=== PATIENT | female | born 1955 | race Caucasian/White ===

== ENCOUNTER 2019-06-02 05:23 | Day surgery (SDC) | payer OTHER ==
[2019-06-02] MEDS ORDERED: cefOXitin 2 GM in Sodium Chloride 0.9% 50 ML IV ONE (06:00)
[2019-06-02] MEDS ORDERED: Albuterol/Ipratropium 3.0-0.5 MG/3 ML Neb Soln NEB ONE (06:00)
[2019-06-02] MEDS ORDERED: Acetaminophen 500 MG Tab PO ONE (06:00)
[2019-06-02] MEDS: Dextrose 5%-Lactated Ringers 1,000 ML IV SCH ×2 (06:35→14:38)
[2019-06-02] MEDS ORDERED: Bupivacaine 0.5%/EPINEPHrine 1:200,000 50 ML MDV ONE (06:36)
[2019-06-02] MEDS ORDERED: fentaNYL 250 MCG/5 ML SDV ONE (07:17)
[2019-06-02] MEDS ORDERED: Neostigmine Methylsulfate 1 MG/ML 5 ML Syringe ONE (07:20)
[2019-06-02] MEDS ORDERED: Propofol 200 MG/20 ML SDV ONE (07:20)
[2019-06-02] MEDS ORDERED: Rocuronium 50 MG/5 ML Vial ONE (07:20)
[2019-06-02] MEDS ORDERED: Glycopyrrolate 0.2 MG/ML 5 ML MDV ONE (07:20)
[2019-06-02] MEDS ORDERED: Succinylcholine 200 MG/10 ML MDV ONE (07:20)
[2019-06-02] MEDS ORDERED: Ondansetron 4 MG/2 ML SDV ONE (07:20)
[2019-06-02] MEDS ORDERED: Dexamethasone 4 MG/ML SDV ONE (07:20)
[2019-06-02] MEDS ORDERED: Lactated Ringers 1,000 ML ONE (07:39)
[2019-06-02] MEDS ORDERED: Ketamine 50 MG in Sodium Chloride 0.9% 49.5 ML IV SCH (08:00)
[2019-06-02] MEDS ORDERED: Ketamine 500 MG/5 ML MDV IV SCH (08:00)
[2019-06-02] MEDS ORDERED: Ropivacaine 34 ML, dexAMETHasone 8 MG, EPINEPHrine 0.4 MG, Sodium Chloride 0.9% 43.6 ML NERVRT SCH ×4 (08:00)
[2019-06-02] MEDS ORDERED: HYDROmorphone 0.5 MG/0.5 ML Syringe IVPUSH PRN (09:11)
[2019-06-02] MEDS ORDERED: Ondansetron 4 MG/2 ML SDV IVPUSH PRN (09:11)
[2019-06-02] MEDS ORDERED: Acetaminophen/HYDROcodone 325-5 MG Tab PO PRN (09:11)
[2019-06-02] MEDS ORDERED: HYDROmorphone 1 MG/ML Syringe IV PRN (09:11)
[2019-06-02] MEDS ORDERED: Albuterol/Ipratropium 3.0-0.5 MG/3 ML Neb Soln INH PRN (09:13)
[2019-06-02] MEDS ORDERED: Citalopram 20 MG Tab PO SCH (10:00)
[2019-06-02] MEDS ORDERED: Lisinopril 20 MG Tab PO SCH (10:00)
[2019-06-02] MEDS ORDERED: Pantoprazole 40 MG Vial IVPUSH SCH (10:00)
[2019-06-02] MEDS ORDERED: Hydrochlorothiazide 12.5 MG Cap PO SCH (10:00)
[2019-06-02] MEDS: Ibuprofen 400 MG Tab PO SCH ×3 (10:45→22:06)
[2019-06-02] MEDS: Albuterol/Ipratropium 3.0-0.5 MG/3 ML Neb Soln INH SCH ×3 (10:55→22:07)
[2019-06-02] MEDS: cefOXitin 2 GM in Sodium Chloride 0.9% 50 ML IV SCH ×2 (14:38→19:57)
[2019-06-03] MEDS: Dextrose 5%-Lactated Ringers 1,000 ML IV SCH (01:44)
[2019-06-03] MEDS ORDERED: Calcium Carbonate 500 MG Tab.Chew PO ONE (01:53)
[2019-06-03] MEDS ORDERED: Calcium Carbonate 500 MG Tab.Chew PO PRN (02:04)
[2019-06-03] MEDS ORDERED: Calcium Carbonate 500 MG Tab.Chew PO SCH (02:15)
[2019-06-03] MEDS: Ibuprofen 400 MG Tab PO SCH (03:05)
[2019-06-03] MEDS: Albuterol/Ipratropium 3.0-0.5 MG/3 ML Neb Soln INH SCH (07:22)
[2019-06-03 07:54] VITALS: BP 160/80; PULSE 86
--- NOTE | 2019-06-04 14:50 | DISCH ---
FINAL DIAGNOSES: 1. Chronic cholecystitis with cholelithiasis. 2. Incarcerated umbilical hernia. 3. History of hypertension. 4. Status post mastectomy with breast implant secondary to breast carcinoma. OPERATIVE PROCEDURES: Done on 06/01, diagnostic laparoscopy with: 1. Cholecystectomy. 2. Repair of incarcerated umbilical hernia. SUMMARY: This is a 63-year-old presenting with chronic right upper quadrant pain and found to have cholelithiasis on ultrasound and felt to be having biliary colic. On the day of admission, the patient underwent laparoscopic cholecystectomy. She had 2 large stones present in the gallbladder and she had a small incarcerated umbilical hernia which was repaired. Postoperatively, she had no major significant problems. She will be discharged home with a combination of Tylenol and ibuprofen as needed for pain. Postoperative labs were done this morning and she will be following up with Dr. Galvan at [facility] on 06/11/2019.
--- NOTE | 2019-06-09 13:30 | OR ---
DATE OF PROCEDURE: 06/02/2019 SURGEON: Umberto Galvan MD PREOPERATIVE DIAGNOSIS: Chronic cholecystitis and cholelithiasis. POSTOPERATIVE DIAGNOSIS: 1. Chronic cholecystitis and cholelithiasis. 2. Incarcerated umbilical hernia. OPERATIVE PROCEDURE: Diagnostic laparoscopy with: 1. Cholecystectomy (15467). 2. Repair of incarcerated umbilical hernia (71394). ANESTHESIA: General. FENCE SETTER: Maylin Peguero PA-C. INDICATION FOR PROCEDURE: This is a 63-year-old female presenting with ongoing upper abdominal pain. Workup was consistent with recurrent biliary colic with cholelithiasis seen on ultrasound. Plan is to proceed with laparoscopic cholecystectomy. Potential risks of the procedure including bleeding, infection, injury to underlying viscera, problems with stones migrating in the common bile duct requiring additional procedures for correction, possibility of persistent symptoms following the procedure were all reviewed, and the patient wishes to proceed. DETAILS OF PROCEDURE: The patient was taken to the operating room and placed in a supine position. After general endotracheal anesthesia was induced, the abdomen was prepped and draped. The patient noted to have umbilical hernia. At this point, a transverse infraumbilical incision was made and peritoneal cavity entered through the umbilical hernia site with a 12 mm trocar. The peritoneal cavity was inflated to 15 mmHg pressure with CO2. Laparoscope was reinserted. No underlying trocar insertion site injuries were seen. Following this, a 12 mm epigastric trocar was placed along with 5 mm right subcostal trocar. The upper abdomen was examined. The patient was noted to have a distended and somewhat sneed- appearing gallbladder consistent with chronic cholecystitis. Gallbladder was retracted anterolaterally and dissection with Harmonic scalpel was made at the gallbladder neck, continued around the gallbladder neck and cystic duct junction. Once that area was well delineated as well as the adjacent cystic artery, both structures were clipped 3 times proximally and divided with Harmonic scalpel. The gallbladder was then dissected off the gallbladder bed using Harmonic scalpel and delivered through the epigastric trocar site. The patient was noted to have multiple stones within the gallbladder. The area of dissection was inspected. No bleeding or bile leaks were seen. A drain was felt not to be necessary. The camera port was then brought up to the epigastric trocar site. Using the laparoscopic suture passer, several sutures of 0 Vicryl stitch were placed, closing the umbilical hernia with a transverse orientation. Once these were in place, the sutures were then tied and peritoneal cavity deflated. The fascia at the epigastric site was also closed with 0 Vicryl stitch and the skin at each incision with 4-0 Vicryl skin stitch. Dressing was applied. The patient was taken to the recovery room in satisfactory condition. There were no evident complications. Physician culture media laboratory assistant, Maylin Peguero, played an essential role in assisting in this case helping to position the patient, retract structures as needed, as well as suturing and cutting sutures when indicated. Her presence improved the patient's safety and decreased the operative time. Umberto Galvan MD /[id number]
== END 2019-06-03 09:00 | disposition home or self-care (01) ==
LOC: JP.MS 05:23 → JP.SDS 05:23
PROVIDERS: ATTEND Surgery
DX: K42.0 Umbilical hernia with obstruction, without gangrene (principal); K80.10 Calculus of gallbladder with chronic cholecystitis without obstruction; E66.9 Obesity, unspecified; I10 Essential (primary) hypertension; Z85.3 Personal history of malignant neoplasm of breast; Z79.899 Other long term (current) drug therapy; Z90.13 Acquired absence of bilateral breasts and nipples; Z68.30 Body mass index [BMI] 30.0-30.9, adult
CPT/HCPCS: 36415; 47562; 49653; 82247; 84075; 85025; 88304; 94640; A9270; C9113; J0171; J0330; J0694; J1100; J2405; J2704; J2710; J2795; J3010; J3490; J7050; J7120; J7121; J7620-GY

== ENCOUNTER 2022-02-20 15:21 | Emergency (ER) | payer MEDICARE, OTHER ==
[2022-02-20 16:11] LABS: ESTIMATED GFR 62 mL/min (>60)
[2022-02-20] MEDS ORDERED: Ketorolac 30 MG/ML SDV IVPUSH ONE (16:15)
[2022-02-20 16:48] VITALS: BP 178/99; PULSE 66
== END 2022-02-20 17:49 | disposition home or self-care (01) ==
LOC: JP.ED 15:21
DX: R10.9 Unspecified abdominal pain (principal); I10 Essential (primary) hypertension; Z79.899 Other long term (current) drug therapy; Z90.49 Acquired absence of other specified parts of digestive tract
CPT/HCPCS: 36415; 74176; 80053; 83690; 85025; 96374; 99284; J1885

== ENCOUNTER 2022-02-21 06:37 | Emergency (ER) | payer MEDICARE, OTHER ==
[2022-02-21 06:53] VITALS: BP 170/88; PULSE 61
[2022-02-21] MEDS ORDERED: fentaNYL 50 MCG/ML SDV IVPUSH ONE ×3 (07:02→11:09)
[2022-02-21] MEDS ORDERED: Sodium Chloride 0.9% 1,000 ML IV SCH (07:15)
[2022-02-21] MEDS: Sodium Chloride 0.9% 10 ML Syringe FLUSH PRN ×2 (07:19→07:43)
[2022-02-21] MEDS ORDERED: Sodium Chloride 0.9% 10 ML Syringe FLUSH PRN (07:36)
[2022-02-21] MEDS ORDERED: Iopamidol 612 MG/ML 100 ML Bottle IV PRN (07:36)
[2022-02-21] MEDS: Sodium Chloride 0.9% 75 ML IV SCH ×2 (07:43→10:37)
[2022-02-21] MEDS ORDERED: Iopamidol 755 Mg/ML 100 ML Bottle IV SCH (10:30)
[2022-02-21] MEDS ORDERED: Sodium Chloride 0.9% 100 ML IV SCH (10:30)
== END 2022-02-21 11:25 | disposition other institution (70) ==
LOC: JP.ED 06:37
DX: R79.89 Other specified abnormal findings of blood chemistry (principal); R10.12 Left upper quadrant pain; E78.00 Pure hypercholesterolemia, unspecified; I10 Essential (primary) hypertension; Z79.899 Other long term (current) drug therapy; Z90.49 Acquired absence of other specified parts of digestive tract; Z20.822 Contact with and (suspected) exposure to COVID-19
CPT/HCPCS: 36415; 71275; 74177; 76856; 80048; 81001; 83605; 84145; 84484; 85025; 85379; 86140; 86617; 86618; 93005; 96361; 96374; 96376; 99284; J3010; J3490; J7030; Q9967; U0002

== ENCOUNTER 2024-09-24 09:41 | Emergency (ER) | payer MEDICARE, OTHER ==
[2024-09-24 10:08] VITALS: BP 163/90; PULSE 66
[2024-09-24] MEDS: Ketorolac 30 MG/ML SDV IM ONE (10:23)
== END 2024-09-24 11:17 | disposition home or self-care (01) ==
LOC: JP.ED 09:41
DX: M54.50 Low back pain, unspecified (principal); E78.00 Pure hypercholesterolemia, unspecified; I10 Essential (primary) hypertension; Z79.899 Other long term (current) drug therapy; Z79.51 Long term (current) use of inhaled steroids
CPT/HCPCS: 96372; 99283; J1885